=== PATIENT | female | born 1975 | race Hispanic/Latino ===

== ENCOUNTER 2018-01-13 08:02 | Outpatient (CLI) | payer BC | END 2018-01-13 08:03 | disposition home or self-care (01) | LOC: BICMAMMO 08:02 | PROVIDERS: ATTEND Family Medicine | DX: Z12.31 Encounter for screening mammogram for malignant neoplasm of breast (principal); Z80.3 Family history of malignant neoplasm of breast | CPT/HCPCS: 77063; 77067 ==

== ENCOUNTER 2018-09-24 20:43 | Emergency (ER) | payer BC ==
[2018-09-24 21:33] LABS: #Lymphocytes 1.1 thou/uL (1.20-3.40); #Monocytes 0.3 thou/uL (0.11-0.59); %Basophils 0.2 % (0.0-1.0); %Eosinophils 0.3 % (0.0-10.0); %Lymphocytes 10.5 % (21.0-51.0); %Monocytes 3.2 % (0.0-10.0); %Neutrophils 85.9 % (42.0-75.0); Hemoglobin 13.4 g/dL (12.0-16.0); Mean Corpuscular HGB CONC 33.2 g/dL (32.0-36.0); Mean Corpuscular Hemoglobin 29.7 pg (27.0-31.0); Mean Corpuscular Volume 89.6 fL (78.0-98.0); Mean Platelet Volume 8.7 fL (7.4-10.4); Platelet Count 329 thou/uL (130-400); RBC Distribution Width 14.6 % (11.5-14.5); Red Blood Cell (RBC) Count 4.49 mill/uL (4.20-5.40); White Blood Cell (WBC) Count 10.5 thou/uL (4.8-10.8)
[2018-09-24 21:45] LABS: ALT (SGPT) 13 U/L (8-55); AST (SGOT) 13 U/L (5-34); Alkaline Phosphatase 79 U/L (40-150); Anion Gap 17 mmol/L (10-20); BUN (Urea Nitrogen) 6 mg/dL (7.0-18.7); Bilirubin, Total 0.3 mg/dL (0.2-1.2); CK (CPK) 76 U/L (29-168); Calc. Creatinine Clearance 0 mL/min (70-130); Calcium 9.7 mg/dL (7.8-10.44); Carbon Dioxide 19 mmol/L (22-29); Chloride 106 mmol/L (98-107); Estimated GFR-MDRD 78; Globulin 4.2 g/dL (2.4-3.5); Glucose 171 mg/dL (70-105); Potassium 3.7 mmol/L (3.5-5.1); Protein, Total 8.2 g/dL (6.0-8.3); Sodium 138 mmol/L (136-145)
[2018-09-24] MEDS ORDERED: Acetaminophen 500 MG TAB ONE (23:19)
== END 2018-09-25 01:06 | disposition home or self-care (01) ==
LOC: ERS 20:43
DX: R00.2 Palpitations (principal); F14.10 Cocaine abuse, uncomplicated; E11.9 Type 2 diabetes mellitus without complications; I10 Essential (primary) hypertension; Z87.891 Personal history of nicotine dependence; Z79.84 Long term (current) use of oral hypoglycemic drugs; Z79.899 Other long term (current) drug therapy
CPT/HCPCS: 36415; 80053; 82550; 83880; 84484; 85025; 93005

== ENCOUNTER 2020-08-19 14:36 | Emergency (ER) | payer BC, SELFPAY ==
[2020-08-19 16:01] LABS: Hemoglobin 13.4 g/dL (12.0-16.0); Mean Corpuscular HGB CONC 31.7 g/dL (32.0-36.0); Mean Corpuscular Hemoglobin 28.2 pg (27.0-31.0); Mean Corpuscular Volume 88.8 fL (78.0-98.0); Mean Platelet Volume 8.8 fL (7.4-10.4); Platelet Count 315 thou/uL (130-400); RBC Distribution Width 12.9 % (11.5-14.5); Red Blood Cell (RBC) Count 4.76 mill/uL (4.20-5.40); White Blood Cell (WBC) Count 1.2 thou/uL (4.8-10.8)
[2020-08-19] MEDS ORDERED: Acetaminophen 500 MG TAB ONE (16:14)
[2020-08-19] MEDS ORDERED: Dexamethasone 4 mg/ml Vial ONE (16:14)
[2020-08-19] MEDS ORDERED: Ibuprofen 200 MG TAB ONE (16:14)
[2020-08-19 16:17] LABS: ALT (SGPT) 15 U/L (8-55); AST (SGOT) 15 U/L (5-34); Albumin 3.8 g/dL (3.5-5.0); Alkaline Phosphatase 88 U/L (40-110); Anion Gap 10 mmol/L (10-20); BUN (Urea Nitrogen) 10 mg/dL (7.0-18.7); Bilirubin, Total 0.4 mg/dL (0.2-1.2); Calc. Creatinine Clearance 0 mL/min (70-130); Calcium 9.2 mg/dL (7.8-10.44); Carbon Dioxide 26 mmol/L (22-29); Chloride 104 mmol/L (98-107); Globulin 4.3 g/dL (2.4-3.5); Glucose 97 mg/dL (70-105); Potassium 3.3 mmol/L (3.5-5.1); Protein, Total 8.1 g/dL (6.0-8.3); Sodium 137 mmol/L (136-145)
[2020-08-19 16:18] LABS: Eosinophils 21 % (0-10); Lymphocytes 59 % (21-51); MDiff Complete? YES; Monocytes 7 % (0-10); Platelet Morphology Comment Appears Adequate; RBC Morphology Normal; Reactive Lymphocytes 5 % (0-10); Reflex for Review?? YES
--- NOTE | 2020-08-19 16:24 | RAD ---
PORTABLE CHEST ONE VIEWS: 08/19/20 at 3:59 p.m. HISTORY: Cough, sore throat, bodyaches, fever. FINDINGS: The heart size is normal. The lungs are expanded without focal areas of consolidation, pneumothoraces , or pleural effusions. IMPRESSION: No radiographic evidence of acute cardiopulmonary process. POS: OFF
[2020-08-19] MEDS ORDERED: Azithromycin 500 MG VIAL ONE (18:07)
[2020-08-19 19:41] LABS: Bacteria/HPF None Seen HPF (None Seen); Bilirubin Negative (Negative); Blood, Urine 1+ (Negative); Clarity Clear (Clear); Glucose, Urine (Dipstick) Normal (Negative); Ketone, Urine 20 mg/dL (Negative); Leukocyte Negative Leu/uL (Negative); Nitrite Negative (Negative); Protein, Urine (Dipstick) Negative (Neg-Trace); RBC/HPF 0-3 HPF (0-3); Specific Gravity, Urine 1.015 (1.002-1.036); Squamous Epithelial 0-3 HPF (0-3); WBC/HPF 0-3 HPF (0-3); pH, Urine 6.5 (5.0-9.0)
[2020-08-19 20:04] LABS: SARS-CoV-2 MS2 Positive; SARS-CoV-2 N Gene Negative; SARS-CoV-2 S Gene Negative; SARS-CoV-2 by NAA Not Detected (NotDetected); SARS-CoV-2 orf1ab Negative
== END 2020-08-19 19:35 | disposition home or self-care (01) ==
LOC: ERS 14:36
DX: B34.9 Viral infection, unspecified (principal); Z20.828 Contact with and (suspected) exposure to other viral communicable diseases; E11.9 Type 2 diabetes mellitus without complications; I10 Essential (primary) hypertension; Z87.891 Personal history of nicotine dependence
CPT/HCPCS: 36415; 71045; 80053; 81003; 81015; 83605; 85025; 85060; 87040; 87635; 87804; 96365; 96375; J0456; J1100; U0003

== ENCOUNTER 2020-09-19 03:37 | Emergency (ER) | payer SELFPAY | END 2020-09-19 04:41 | disposition home or self-care (01) | LOC: ERS 03:37 | DX: J02.9 Acute pharyngitis, unspecified (principal); F17.210 Nicotine dependence, cigarettes, uncomplicated; I10 Essential (primary) hypertension; E11.9 Type 2 diabetes mellitus without complications | CPT/HCPCS: 87081; 87430; 99283 ==

== ENCOUNTER 2022-01-09 07:54 | Inpatient (IN) | payer OTHER ==
[2022-01-09 08:39] LABS: #Eosinphils 0.1 thou/uL (0.0-0.7); #Lymphocytes 1.7 thou/uL (1.20-3.40); #Monocytes 0.8 thou/uL (0.11-0.59); #Neutrophils 5.3 thou/uL (1.40-6.50); %Basophils 0.2 % (0.0-1.0); %Eosinophils 0.7 % (0.0-10.0); %Lymphocytes 21.3 % (21.0-51.0); %Monocytes 9.8 % (0.0-10.0); Hemoglobin 12.5 g/dL (12.0-16.0); Mean Corpuscular HGB CONC 32.1 g/dL (32.0-36.0); Mean Corpuscular Hemoglobin 28.4 pg (27.0-31.0); Mean Corpuscular Volume 88.4 fL (78.0-98.0); Mean Platelet Volume 8.8 fL (7.4-10.4); Platelet Count 299 thou/uL (130-400); RBC Distribution Width 16.1 % (11.5-14.5); Red Blood Cell (RBC) Count 4.42 mill/uL (4.20-5.40); White Blood Cell (WBC) Count 7.8 thou/uL (4.8-10.8)
[2022-01-09 08:44] LABS: ALT (SGPT) 11 U/L (8-55); AST (SGOT) 16 U/L (5-34); Albumin 3.4 g/dL (3.5-5.0); Alkaline Phosphatase 70 U/L (40-110); Anion Gap 13 mmol/L (10-20); BUN (Urea Nitrogen) 8 mg/dL (7.0-18.7); Bilirubin, Total 0.3 mg/dL (0.2-1.2); Calc. Creatinine Clearance 0 mL/min (70-130); Calcium 8.8 mg/dL (7.8-10.44); Carbon Dioxide 26 mmol/L (22-29); Chloride 104 mmol/L (98-107); Globulin 3.5 g/dL (2.4-3.5); Glucose 94 mg/dL (70-105); Protein, Total 6.9 g/dL (6.0-8.3); Sodium 139 mmol/L (136-145)
[2022-01-09] MEDS ORDERED: Dicyclomine 20 MG/2 ML VIAL ONE (09:31)
[2022-01-09] MEDS ORDERED: Ondansetron PF 4 MG/2 ML Vial ONE (09:31)
[2022-01-09 09:49] LABS: BHCG - Serum Negative (NEGATIVE); Pregs Control Background? CLEAR/WHITE (CLR/WHITE); Pregs Control Bar Appear? YES (CONTROL BAR)
[2022-01-09] MEDS ORDERED: Piperacillin/Tazobactam 3.375 GM VIAL ONE (11:28)
[2022-01-09] MEDS ORDERED: Ondansetron PF 4 MG/2 ML Vial IVP PRN (12:52)
[2022-01-09] MEDS ORDERED: Acetaminophen 325 MG TAB PO PRN (12:52)
[2022-01-09] MEDS ORDERED: Dextrose 50% Abboject 50 ML SYRINGE SLOW IVP PRN (13:25)
[2022-01-09] MEDS ORDERED: Dextrose 5% in Water 1,000 ML IV PRN (13:25)
[2022-01-09] MEDS ORDERED: HumaLOG 300 UNITS/3 ML VIAL SC PRN (13:25)
[2022-01-09] MEDS: Morphine 2 MG/ML VIAL SLOW IVP PRN ×2 (13:32→17:41)
[2022-01-09] MEDS: Sodium Chloride 0.9% 1,000 ML IV SCH (13:32)
[2022-01-09 14:03] VITALS: BMI 35.1
[2022-01-09 15:07] LABS: SARS-CoV-2 NAA Rapid Test Not Detected (NotDetected)
[2022-01-09] MEDS: Piperacillin/Tazobactam 3.375 GM in Sodium Chloride 0.9% 100 ML IVPB SCH (15:26)
[2022-01-10] MEDS: Sodium Chloride 0.9% 1,000 ML IV SCH ×4 (00:29→16:35)
[2022-01-10] MEDS: Morphine 2 MG/ML VIAL SLOW IVP PRN ×2 (00:37→08:16)
[2022-01-10] MEDS: Piperacillin/Tazobactam 3.375 GM in Sodium Chloride 0.9% 100 ML IVPB SCH ×4 (00:38→23:36)
[2022-01-10 05:49] LABS: #Basophils 0.1 thou/uL (0.0-0.2); #Eosinphils 0.1 thou/uL (0.0-0.7); #Lymphocytes 1.6 thou/uL (1.20-3.40); #Monocytes 0.7 thou/uL (0.11-0.59); #Neutrophils 3.7 thou/uL (1.40-6.50); %Basophils 0.8 % (0.0-1.0); %Eosinophils 2.2 % (0.0-10.0); %Lymphocytes 26.1 % (21.0-51.0); %Neutrophils 58.9 % (42.0-75.0); Hemoglobin 11.3 g/dL (12.0-16.0); Mean Corpuscular HGB CONC 31.7 g/dL (32.0-36.0); Mean Corpuscular Hemoglobin 28.5 pg (27.0-31.0); Mean Corpuscular Volume 89.8 fL (78.0-98.0); Mean Platelet Volume 8.5 fL (7.4-10.4); Platelet Count 290 thou/uL (130-400); RBC Distribution Width 15.8 % (11.5-14.5); Red Blood Cell (RBC) Count 3.96 mill/uL (4.20-5.40); White Blood Cell (WBC) Count 6.2 thou/uL (4.8-10.8)
[2022-01-10 06:15] LABS: Anion Gap 11 mmol/L (10-20); BUN (Urea Nitrogen) 6 mg/dL (7.0-18.7); Calc. Creatinine Clearance 146 mL/min (70-130); Calcium 8.1 mg/dL (7.8-10.44); Carbon Dioxide 23 mmol/L (22-29); Chloride 105 mmol/L (98-107); Glucose 93 mg/dL (70-105); Potassium 3.7 mmol/L (3.5-5.1); Sodium 135 mmol/L (136-145)
[2022-01-10] MEDS: Enoxaparin Sodium 40 MG/0.4 ML SYRINGE SC SCH (08:17)
[2022-01-10] MEDS: HYDROcodone/Acetaminophen 5/325 mg Tablet PO PRN ×3 (12:27→23:35)
[2022-01-11] MEDS: Sodium Chloride 0.9% 1,000 ML IV SCH ×2 (05:23→12:43)
[2022-01-11 08:26] VITALS: BP 125/84; TEMP 98.3
[2022-01-11] MEDS: Piperacillin/Tazobactam 3.375 GM in Sodium Chloride 0.9% 100 ML IVPB SCH (09:08)
[2022-01-11] MEDS: Enoxaparin Sodium 40 MG/0.4 ML SYRINGE SC SCH (09:09)
[2022-01-11] MEDS: HYDROcodone/Acetaminophen 5/325 mg Tablet PO PRN (09:10)
[2022-01-11] MEDS ORDERED: Sodium Chloride 0.9% 1,000 ML IV SCH (12:35)
== END 2022-01-11 16:23 | disposition home or self-care (01) | DRG 392 ==
LOC: ERS 07:54 → T4-B 11:37
PROVIDERS: ADMIT Internal Medicine; ATTEND Internal Medicine
DX: K52.89 Other specified noninfective gastroenteritis and colitis (principal); Z20.822 Contact with and (suspected) exposure to COVID-19; E11.9 Type 2 diabetes mellitus without complications; I10 Essential (primary) hypertension; F17.210 Nicotine dependence, cigarettes, uncomplicated; Z90.49 Acquired absence of other specified parts of digestive tract
CPT/HCPCS: 36415; 36416; 74177; 80048; 80053; 83690; 84703; 85025; 87040; J0500; J1650; J2270; J2405; J2543; J3490; J7050; U0002

== ENCOUNTER 2023-08-13 09:19 | Emergency (ER) | payer OTHER, SELFPAY ==
[2023-08-13] MEDS ORDERED: Methocarbamol 500 MG TAB ONE (10:05)
[2023-08-13] MEDS ORDERED: Ketorolac Tromethamine 30 MG/ML VIAL ONE (10:05)
== END 2023-08-13 10:45 | disposition home or self-care (01) ==
LOC: ERS 09:19
DX: M77.8 Other enthesopathies, not elsewhere classified (principal); I10 Essential (primary) hypertension; E11.9 Type 2 diabetes mellitus without complications; F17.210 Nicotine dependence, cigarettes, uncomplicated
CPT/HCPCS: 96372; J1885

== ENCOUNTER 2023-09-06 18:54 | Emergency (ER) | payer OTHER ==
[2023-09-06] MEDS ORDERED: Ketorolac Tromethamine 30 MG (1 mL) VIAL ONE (19:36)
[2023-09-06] MEDS ORDERED: Amoxicillin/Potassium Clav 875 MG TAB ONE (19:36)
== END 2023-09-06 20:05 | disposition home or self-care (01) ==
LOC: ERS 18:54
DX: K08.89 Other specified disorders of teeth and supporting structures (principal); I10 Essential (primary) hypertension; E11.9 Type 2 diabetes mellitus without complications; F17.210 Nicotine dependence, cigarettes, uncomplicated; Z79.84 Long term (current) use of oral hypoglycemic drugs
CPT/HCPCS: 96372; 99283; J1885

== ENCOUNTER 2024-06-10 08:15 | Emergency (ER) | payer BC ==
[2024-06-10] MEDS ORDERED: Boostrix 0.5 ML (Tdap) VIAL (>/=7 yrs of age) ONE (09:46)
[2024-06-10] MEDS ORDERED: HYDROcodone/Acetaminophen 5/325 mg Tablet ONE (09:46)
[2024-06-10] MEDS ORDERED: Bacitracin 1 PK ONE (10:36)
== END 2024-06-10 10:44 | disposition home or self-care (01) ==
LOC: ERS 08:15
DX: S51.012A Laceration without foreign body of left elbow, initial encounter (principal); I10 Essential (primary) hypertension; E11.9 Type 2 diabetes mellitus without complications; Z87.891 Personal history of nicotine dependence; W01.0XXA Fall on same level from slipping, tripping and stumbling without subsequent striking against object, initial encounter
CPT/HCPCS: 90471; 90715

== ENCOUNTER 2025-07-16 19:04 | Emergency (ER) | payer OTHER ==
[~2025-07-16 19:04] MED LIST: Iopamidol-370 76% 500 ML MDV (1 ML CHARGE) ONE
[2025-07-16 19:34] LABS: #Basophils 0.07 10x3/uL (0.0-0.2); #Eosinophils 0.05 10x3/uL (0.0-0.7); #Monocytes 0.83 10x3/uL (0.11-0.59); #Neutrophils 6.81 10x3/uL (1.40-6.50); %Basophils 0.7 % (0.0-1.0); %Eosinophils 0.5 % (0.0-10.0); %Lymphocytes 24.2 % (21.0-51.0); %Monocytes 8.1 % (0.0-10.0); %Neutrophils 66.1 % (42.0-75.0); Hematocrit 40.6 % (36.0-47.0); Hemoglobin 13.2 g/dL (12.0-16.0); Mean Corpuscular Hemoglobin 28.3 pg (27.0-31.0); Mean Corpuscular Volume 86.9 fL (78.0-98.0); Platelet Count 313 10x3/uL (130-400); Red Blood Cell (RBC) Count 4.67 mill/uL (4.20-5.40); White Blood Cell (WBC) Count 10.29 10x3/uL (4.8-10.8)
[2025-07-16 19:55] LABS: ALT (SGPT) 11 U/L (Less than 34); AST (SGOT) 15 U/L (11-34); Albumin 3.9 g/dL (3.1-4.5); Alkaline Phosphatase 94 U/L (40-110); Anion Gap 18 mmol/L (10-20); BUN (Urea Nitrogen) 13 mg/dL (7.0-18.7); Bilirubin, Total 0.5 mg/dL (0.3-1.2); Calc. Creatinine Clearance 0 mL/min (70-130); Calcium 10.0 mg/dL (7.8-10.44); Carbon Dioxide 24 mmol/L (22-29); Chloride 102 mmol/L (98-107); Globulin 4.0 g/dL (2.4-3.5); Glucose 121 mg/dL (70-105); Potassium 3.3 mmol/L (3.5-5.1); Sodium 141 mmol/L (136-145)
[2025-07-16 21:25] LABS: Bacteria/HPF None Seen HPF (None Seen); Glucose, Urine (Dipstick) Normal (Negative); Leukocyte Negative Leu/uL (Negative); Protein, Urine (Dipstick) 30 mg/dL (Neg-Trace); RBC/HPF None Seen HPF (0-3); Specific Gravity, Urine 1.035 (1.002-1.036); WBC/HPF 0-3 HPF (0-3)
== END 2025-07-16 22:30 | disposition home or self-care (01) ==
LOC: ERS 19:04
DX: S00.83XA Contusion of other part of head, initial encounter (principal); M48.00 Spinal stenosis, site unspecified; E11.9 Type 2 diabetes mellitus without complications; I10 Essential (primary) hypertension; Z87.891 Personal history of nicotine dependence; Z79.84 Long term (current) use of oral hypoglycemic drugs; Z79.899 Other long term (current) drug therapy; V89.2XXA Person injured in unspecified motor-vehicle accident, traffic, initial encounter
CPT/HCPCS: 70450; 71260; 72125; 74177; 80053; 81001; 84484; 85025; 93005; 96374; 96376; J3010; Q9967